=== PATIENT | male | born 1980 ===

== ENCOUNTER 2017-02-24 16:33 | Inpatient (IN) | payer MEDICAID, OTHER ==
--- NOTE | 2017-02-24 16:51 | C.PDOC ---
History Of Present Illness 36 y/o male presents to ED requesting detox from heroin and alcohol. Last use of alcohol and heroin was yesterday, and patient has been pre-screened. Patient denies any physical complaints at this time. Time Seen by Provider: 02/24/17 16:35 Chief Complaint (Nursing): Substance Abuse History Per: Patient History/Exam Limitations: no limitations Onset/Duration Of Symptoms: Gradual Current Symptoms Are (Timing): Still Present Modifying Factor(s): Marijuana, Narcotics Severity: Moderate Associated Symptoms: denies: Suicidal Thoughts Past Medical History Reviewed: Historical Data, Nursing Documentation, Vital Signs Vital Signs: Last Vital Signs Temp 97.6 F 02/28/17 06:21 Pulse 73 02/28/17 06:21 Resp 18 02/28/17 06:21 BP 119/78 02/28/17 06:21 Pulse Ox 99 02/28/17 06:21 - Medical History PMH: Back Problems, HTN, Seizures Surgical History: Appendectomy Family History: States: No Known Family Hx - Social History Hx Alcohol Use: Yes Hx Substance Use: Yes - Immunization History Hx Tetanus Toxoid Vaccination: Yes Hx Influenza Vaccination: No Review Of Systems Except As Marked, All Systems Reviewed And Found Negative. Constitutional: Negative for: Fever, Chills Cardiovascular: Negative for: Chest Pain, Palpitations Respiratory: Negative for: Cough, Shortness of Breath Gastrointestinal: Negative for: Nausea, Vomiting, Abdominal Pain Musculoskeletal: Negative for: Neck Pain, Back Pain Skin: Negative for: Rash, Bruising Neurological: Negative for: Headache, Dizziness Psych: Negative for: Suicidal ideation Physical Exam - Physical Exam Appears: Well, Non-toxic, No Acute Distress Skin: Normal Color, Warm, Dry Eye(s): bilateral: Normal Inspection, EOMI Oral Mucosa: Moist Neck: Supple Cardiovascular: Rhythm Regular (mildly tachycardic), No Murmur Respiratory: Normal Breath Sounds, No Rales, No Rhonchi, No Wheezing Gastrointestinal/Abdominal: Normal Exam, Bowel Sounds, Soft, No Tenderness Extremity: Normal ROM Neurological/Psych: Oriented x3, Other (mild tremors noted) ED Course And Treatment - Laboratory Results Result Diagrams: 02/28/17 07:25 02/28/17 07:25 O2 Sat by Pulse Oximetry: 98 (on RA) Pulse Ox Interpretation: Normal Progress Note: Blood work, UA, UDS ordered and reviewed. Patient given PO Librium. 19:00- Patient medically cleared. Accepted for detox admission by Dr. Rosas. Reevaluation Time: 18:45 Reassessment Condition: Improved (Patient resting comfortably, no current tremors/tachycardia.) Disposition - Disposition Disposition: HOSPITALIZED Disposition Time: 19:03 Condition: STABLE - Clinical Impression Clinical Impression: Opiate dependence, Alcohol dependence - Scribe Statement The provider has reviewed the documentation as recorded by the Scribe Stephanie Santiago All medical record entries made by the Scribe were at my direction and personally dictated by me. I have reviewed the chart and agree that the record accurately reflects my personal performance of the history, physical exam, medical decision making, and the department course for this patient. I have also personally directed, reviewed, and agree with the discharge instructions and disposition. Decision To Admit - Pt Status Changed To: Hospital Disposition Of: Inpatient - Admit Certification Admit to Inpatient:: After my assessment, the patient will require hospitalization for at least two midnights. This is because of the severity of symptoms shown, intensity of services needed, and/or the medical risk in this patient being treated as an outpatient. - InPatient: Physician Admission Certification: I certify that this patient requires 2 or more midnights of care for the following reason:: see notes - . Bed Request Type: Detox Admitting Physician: Jeb Rosas Patient Diagnosis: Alcohol dependence, Opiate dependence
[2017-02-24 17:49] LABS: CHLORIDE 103 mmol/L (98-107); SODIUM 140 mmol/L (132-148)
[2017-02-24 17:50] LABS: POTASSIUM 4.2 mmol/L (3.6-5.2)
[2017-02-24 17:52] LABS: ALB/GLOB RATIO 1.4 (1.0-2.1); ALKALINE PHOSPHATASE 77 U/L (38-126); ALT/SGPT 34 U/L (21-72); AST/SGOT 35 U/L (17-59); BILIRUBIN,TOTAL 1.3 mg/dL (0.2-1.3); BLOOD UREA NITROGEN 18 mg/dL (9-20); CALCIUM 9.4 mg/dl (8.6-10.4); CARBON DIOXIDE 25 mmol/L (22-30); GFR AFRICAN-AMERICAN > 60; GLUCOSE,RANDOM 90 mg/dL (75-110); TOTAL PROTEIN 7.7 g/dL (6.3-8.3)
[2017-02-24 17:53] LABS: ALCOHOL SERUM < 10 mg/dl (0-10); BASO # 0.1 K/uL (0.0-0.2); BASO % 0.7 % (0.0-2.0); EOS # 0.2 K/uL (0.0-0.7); EOS % 1.6 % (0.0-4.0); HEMATOCRIT 42.9 % (35.0-51.0); LYMPH # 2.9 K/uL (1.0-4.3); LYMPH % 27.4 % (20.0-40.0); MEAN CELL VOLUME 91.2 fL (80.0-94.0); MEAN CORPUSCULAR HEMOGLOBIN 31.4 pg (27.0-31.0); MEAN CORPUSCULAR HGB CONC 34.4 g/dL (33.0-37.0); MEAN PLATELET VOLUME 7.4 fL (7.2-11.7); MONO # 0.9 K/uL (0.0-0.8); MONO % 8.5 % (0.0-10.0); RED CELL DISTRIBUTION WIDTH 13.4 % (11.5-14.5); WHITE BLOOD COUNT 10.5 K/uL (4.8-10.8)
[2017-02-24 18:12] LABS: RBC URINE 2 /hpf (0-3); URINE BACTERIA RARE (<OCC); URINE BILIRUBIN NEGATIVE (NEGATIVE); URINE BLOOD NEGATIVE (NEGATIVE); URINE GLUCOSE (UA) NORMAL (Normal); URINE HYALINE CAST 0-2 /lpf (0-2); URINE KETONE TRACE mg/dL (NEGATIVE); URINE LEUKOCYTE ESTERASE NEG Leu/uL (Negative); URINE PROTEIN 2+ mg/dL (NEGATIVE); WBC URINE 3 /hpf (0-5)
[2017-02-24 18:27] LABS: URINE COLOR YELLOW (YELLOW)
--- NOTE | 2017-02-24 19:35 | PCM.BM ---
<Farida Cox - Last Filed: 02/24/17 19:32> Treatment Plan Problems - Problems identified on initial assessmt potential for opiate withdrawal Date Initiated: 02/24/17 Time Initiated: 19:33 Assessment reference: NA Status: Active potential for alcohol withdrawal Date Initiated: 02/24/17 Time Initiated: 19:34 Assessment reference: NA Status: Active anxiety Date Initiated: 02/24/17 Time Initiated: 19:36 Assessment reference: NA Status: Active Treatment assets and liabiliti Patient Assests: cooperative, insightful, motivated, ADL independent, negotiates basic needs, cognitively intact Patient Liabilities: substance abuse, medical problems - Milieu Protocol Maintain good personal hygiene: daily Encourage regular showers, daily Remind patient to perform daily oral care, daily Assist patient to perform ADL's Conduct patient checks and document Observation sheet: Q15 minutes Maintain personal safety: every shift Educate patient to report safety concerns to staff, every shift Monitor environment for contraband/sharps Medication safety: Monitor for expected outcome, potential side effects: every shift, Assess barriers to learning: every shift, Assess readiness for medication education: every shift <Ronan Clark - Last Filed: 02/27/17 00:44> - Diagnosis (1) Alcohol use disorder, severe, dependence Status: Acute Interventions: 02/27/17 00:45 * Assess 7x/week regarding severity of withdrawal * Educate regarding risks, benefits, side effects and alternatives of medications * Use Motivational Interviewing for abstinence * Use CBT for relapse prevention * Medication management for withdrawal symptoms * Encourage medication assisted treatment * (2) Opioid use disorder, severe, dependence Status: Acute Interventions: 02/27/17 00:45 * Assess 7x/week regarding severity of withdrawal * Educate regarding risks, benefits, side effects and alternatives of medications * Use Motivational Interviewing for abstinence * Use CBT for relapse prevention * Medication management for withdrawal symptoms * Encourage medication assisted treatment * <Diane Quezada - Last Filed: 02/27/17 11:03> Family Contact Family involvement: Famantonioy/SO not involved Family contact: Patient declines to allow family contact at present - Goals for Treatment Patient goals for treatment: Complete detox and transition to short or long- term rehab. Discharge/Continuing Care - Education Needs Education Needs: Patient Medication, Patient Diagnosis/Disease Process, Patient Coping Skills, Patient Anger Management skills, Patient Placement options, Patient Community resources - Discharge Discharge Criteria: No longer exhibiting s/s of withdrawal, Reduction of target symptoms Discharge to:: Substance Abuse Rehab - Treatment Team Participation Patient/Family/SO Statement: 02/27/17 11:02 "I'm open to either short term or penitentiary rehab...I don't care. Wherever I get in, I'll go". Discussed with Family/SO: No Was Patient/Family/SO present at Treatment Team Meeting: Yes
[2017-02-24] MEDS ORDERED: Aluminum Hydroxide/Magnesium Hydroxide Susp (30 mL) PO PRN (21:26)
[2017-02-25 13:41] VITALS: RESP 18
--- NOTE | 2017-02-25 14:17 | PCM.PSYCH ---
Initial Psychiatric Evaluation - Initial Psychiatric Evaluation Type of Admission: Voluntary Legal Status: Capacity Chief Complaint (in patient's own words): I overdosed on heroin. History of Present Illness and Precipitating Events: Patient is a 36 years old, , currently unemployed, male with history of ADHD during his childhood, was admitted for the treatment of withdrawing from heroine, anxiolytics, Percocet, cannabis and alcohol. According to patient, he was using drugs with his friends and he became unconscious but according to the record patient was found unconscious in the bathroom of his home and he was taken to [facility] where he was treated with Narcan. Subsequently patient was transferred to [facility] for treatment. Patient denied that this was a suicidal attempt. Reported he started using heroin 3-1/2 years ago after the of his mother. Increased gradually up to 1 bundle daily. He went to [facility] for detox about 6 months ago, was abstinent for about 6 months and relapsed on heroin about 3 weeks ago after losing his job. Lost discharge due to alcohol use and other drugs. Currently he was using 3-4 bags daily. History of one previous detox and one rehabilitation. Also using Percocet which she started 3-1/2 years ago. Was taking 5-6 tablets of Percocet daily until his last detox. For last 3 weeks he is taking 2-3 tablets of Percocet daily. Anxiolytics: Started taking Xanax 3-1/2 years ago, was taking 4-5, 2 mg takes daily until his last detox 6 months ago. For last 3 weeks, taking 2 sticks daily. Cannabis: Started at the age of 13 years, 1 g daily. Last use reported 2 days ago. Alcohol: Started 3-1/2 years ago. He was drinking 1-3 pints of vodka daily. Last drink 2 days ago. There is no longest period of abstinence. Smokes one pack of cigarettes daily and is requesting for nicotine patch. Patient has history of right hand and penile surgery. He has court case pending for hit and run/DUI. Reported as a child he has history of behavioral problems, was going to [facility] and was taking Ritalin until 9 years of age. Patient reported no feeling depression with decreased sleep, increased energy, decreased appetite and lost about 10 pounds in about one month. Patient reported he had suicidal ideations after he lost his job and current overdose attempt looks like suicidal attempt but patient denied. Denied any homicidal ideations. Also reported having irritability, anger, aggression, mood swings, racing thoughts and spending spree, mostly during intoxication. Current Medications: Active Medications Generic Name Dose Route Start Last Admin Trade Name Freq PRN Reason Stop Dose Admin Acetaminophen 650 mg 02/24/17 21:28 02/25/17 11:04 Tylenol 325mg Tab PO 650 mg Q4 PRN Administration Pain, Mild (1-3) Al Hydrox/Mg Hydrox/Simethicone 30 ml 02/24/17 21:26 Maalox 30 Ml PO TID PRN Indigestion / Heartburn Chlordiazepoxide 25 mg 02/24/17 21:36 Librium PO Q4 PRN alcohol withdrawal Clonidine HCl 0.1 mg 02/24/17 21:31 Catapres PO Q8 PRN Opiate reversal Divalproex Sodium 500 mg 02/25/17 18:[address] PO BID MARIVEL Folic Acid 1 mg 02/25/17 14:00 Folic Acid PO DAILY MARIVEL Hydroxyzine HCl 25 mg 02/24/17 21:34 Atarax PO Q8 PRN Anxiety Loperamide HCl 4 mg 02/24/17 21:29 Imodium PO Q8 PRN Diarrhea Multivitamins 1 tab 02/25/17 14:00 Hexavitamin PO DAILY MARIVEL Ondansetron HCl 4 mg 02/24/17 21:27 02/25/17 11:04 Zofran Tab PO 4 mg Q6 PRN Administration Nausea/Vomiting Phenytoin Sodium 100 mg 02/25/17 14:00 Dilantin PO TID [facility] Thiamine HCl 100 mg 02/25/17 14:00 Vitamin B1 Tab PO DAILY MARIVEL Trazodone HCl 50 mg 02/24/17 21:33 02/24/17 21:53 Desyrel PO 50 mg HS PRN Administration Insomnia Past Psychiatric History - Past Psychiatric History Previous Treatment History: Inpatient At [facility]: [facility] Nature of Treatment: Inpatient detox History of Abuse: None reported History of ETOH/Drug Use: CC and HPI History of Family Illness: None reported Pertinent Medical Hx (Current Medical&Sleep Prob, Allergies): Allergies Allergy/AdvReac Type Severity Reaction Status Date / Time No Known Allergies Allergy Verified 02/24/17 16:36 No Known Home Med 02/24/17 Epilepsy Review of Systems - Psychiatric Psychiatric: Depression, Irritability, Mood Swings Mental Status Examination - Personal Presentation Personal Presentation: Looks stated age - Affect Affect: Other (Inappropriate/neutral) - Motor Activity Motor Activity: Calm - Reliability in Providing Information Reliability in Providing Information: Fair - Speech Speech: Organized - Mood Mood: Depressed - Formal Thought Process Formal Thought Process: No Impairment - Hallucinations/Delusions Hallucinations: Other (None reported) Delusions: Other - Obsessions/Compulsions Obsessions: None Compulsions: None - Cognitive Functions Orientation: Person, Place, Situation, Time Sensorium: Alert Attention/Concentration: Attentive Abstract Thinking: [place] Estimate of Intelligence: Average Judgement: Intact, as evidence by: Insight regarding need for hospitalization Memory: Recent intact, as evidence by: 3/3 object recall, Remote intact, as evidenced by: Ability to recall historical events - Risk Risk: Withdrawal, Diminished functioning - Strength & Assets Inventory Strength & Assets Inventory: Family support, Cooperative - Limitations Limitations: Other DSM 5 DX - DSM 5 DSM 5 Diagnosis: Opiate use disorder moderate Anxiolytics use disorder Cannabis use disorder severe Alcohol use disorder severe Provisional: Bipolar 1 disorder Provisional: Antisocial personality disorder - Recommended/Plan of Treatment Treatment Recommendations and Plan of Treatment: Patient education Supportive therapy Will start when necessary medication for opiate, anxiolytics and alcohol withdrawal as patient has very mild symptoms of withdrawing from these substances. Other when necessary medications Multivitamin Folic acid Timing Nicotine patch Depakote 500 mg twice a day Projected ELOS: 4-5 days - Smoking Cessation Smoking Cessation Initiated: Yes
[2017-02-25] MEDS: Multiple Vitamins Tab PO SCH (14:26)
[2017-02-25] MEDS: Divalproex 500 mg DR Tab PO SCH (17:42)
[2017-02-26] MEDS: Multiple Vitamins Tab PO SCH (09:45)
[2017-02-26] MEDS: Divalproex 500 mg DR Tab PO SCH ×2 (09:45→17:20)
--- NOTE | 2017-02-26 14:22 | PCM.PYCHPN ---
Psychiatric Progress Note - Psychiatric Progress Note Patient seen today, length of contact: 16 min Patient Chief Complaint: Having back pain, tremors, diaphoretic, anxiety Problems Identified/Issues Discussed: The pt is seen, chart reviewed, case discussed with staff. The pt is compliant with Lirbium and Vitamins and reports no side effects. Pt is having back pain, tremors, diaphoretic, trouble sleeping overnight, anxious Denies nausea, vominting diarrhea, constipation After care discussed, support and psychoeducation given. Medication Change: Yes (detox changes daily) Medical Record Reviewed: Yes Mental Status Examination - Cognitive Function Orientation: Person, Place, Situation, Time Memory: Intact Attention: WNL Concentration: WNL Association: WNL Fund of Knowledge: WNL - Mood Mood: Anxious - Affect Affect: Other (Inappropriate/neutral) - Speech Speech: Appropriate - Formal Thought Process Formal Thought Process: No Impairment - Suicidal Ideation Suicidal Ideation: No - Homicidal Ideation Homicidal Ideation: No Goal/Treatment Plan - Goal/Treatment Plan Need for Continued Stay: Discharge may exacerbated symptoms, Severe functional impairment Progress Toward Problem(s) and Goals/Treatment Plan: Continue medications with detox Support and psychoeducation daily Attend groups and activities daily After care planning by counselors - Smoking Cessation Smoking Cessation Initiated: No
[2017-02-27] MEDS: Multiple Vitamins Tab PO SCH (10:17)
[2017-02-27] MEDS: Divalproex 500 mg DR Tab PO SCH ×2 (10:17→18:15)
[2017-02-28 06:22] VITALS: BP 119/78; PULSE 73; TEMP 97.6
[2017-02-28 07:42] LABS: BASO # 0.1 K/uL (0.0-0.2); BASO % 1.3 % (0.0-2.0); EOS # 0.2 K/uL (0.0-0.7); EOS % 4.1 % (0.0-4.0); HEMATOCRIT 41.7 % (35.0-51.0); LYMPH % 54.5 % (20.0-40.0); MEAN CELL VOLUME 91.4 fL (80.0-94.0); MEAN CORPUSCULAR HEMOGLOBIN 31.4 pg (27.0-31.0); MEAN CORPUSCULAR HGB CONC 34.4 g/dL (33.0-37.0); MEAN PLATELET VOLUME 7.4 fL (7.2-11.7); MONO # 0.5 K/uL (0.0-0.8); MONO % 9.5 % (0.0-10.0); RED CELL DISTRIBUTION WIDTH 13.8 % (11.5-14.5); WHITE BLOOD COUNT 5.6 K/uL (4.8-10.8)
[2017-02-28 08:10] LABS: CHLORIDE 100 mmol/L (98-107); SODIUM 140 mmol/L (132-148)
[2017-02-28 08:11] LABS: POTASSIUM 3.7 mmol/L (3.6-5.2)
[2017-02-28 08:13] LABS: ALB/GLOB RATIO 1.4 (1.0-2.1); ALKALINE PHOSPHATASE 58 U/L (38-126); ALT/SGPT 40 U/L (21-72); AST/SGOT 34 U/L (17-59); BILIRUBIN,TOTAL 0.6 mg/dL (0.2-1.3); BLOOD UREA NITROGEN 16 mg/dL (9-20); CARBON DIOXIDE 24 mmol/L (22-30); GFR AFRICAN-AMERICAN > 60; GLUCOSE,RANDOM 98 mg/dL (75-110); TOTAL PROTEIN 6.6 g/dL (6.3-8.3)
[2017-02-28 08:14] LABS: CALCIUM 9.1 mg/dl (8.6-10.4)
[2017-02-28 08:16] LABS: VALPROIC ACID 61.4 ug/mL (50.0-100.0)
--- NOTE | 2017-02-28 08:46 | PCM.PYCHDC ---
Mental Status Examination - Mental Status Examination Orientation: Person, Place, Situation, Time Memory: Intact Mood: Anxious Affect: Constricted Speech: Appropriate Attention: WNL Concentration: WNL Association: WNL Fund of Knowledge: WNL Formal Thought Process: No Impairment Suicidal Ideation: No Current Homicidal Ideation?: No Discharge Summary - Discharge Note Reason for Hospitalization: Alcohol detox Psychiatric History (includes Medical, Family, Personal Hx): Inpatient detox Laboratory Data: Abnormal Lab Results 02/28/17 02/28/17 02/28/17 07:25 07:25 07:25 WBC 5.6 RBC 4.57 Hgb 14.4 Hct 41.7 MCV 91.4 MCH 31.4 H MCHC 34.4 RDW 13.8 Plt Count 196 MPV 7.4 Neut % (Auto) 30.6 L Lymph % (Auto) 54.5 H [place] % (Auto) 9.5 Eos % (Auto) 4.1 H Baso % (Auto) 1.3 Neut # 1.7 L Lymph # 3.0 [place] # 0.5 Eos # 0.2 Baso # 0.1 Sodium 140 Potassium 3.7 Chloride 100 Carbon Dioxide 24 Anion Gap 20 BUN 16 Creatinine 0.9 Est GFR ( Amer) > 60 Est GFR (Non-Af Amer) > 60 Random Glucose 98 Calcium 9.1 Total Bilirubin 0.6 AST 34 ALT 40 Alkaline Phosphatase 58 Total Protein 6.6 Albumin 3.8 Globulin 2.8 Albumin/Globulin Ratio 1.4 Phenytoin < 3.0 L Valproic Acid 61.4 Consultations:: List each consultation separately and include: 1. Reason for request. 2. Findings. 3. Follow-up Summary of Hospital Course include:: 1. Description of specific treatment plan utilized for patients during their course of treatmen. 2. Summarize the time- course for resolution of acute symptoms and/or regressed behaviors. 3. Describe issues identified and worked on during hospitalization. 4. Describe medication utilized. 5. Describe medical problems identified and treated. 6. Reassessment of suicide risk Summary of Hospital Course: The pt was admitted and started on treatment with psychotherapy, support, psychoeducation and medications. [place] and CBT used. The pt attended groups and activities, as well as milieu therapy. All the risks and benefits of medications are discussed and the patient understood and agreed. he didnot need opioid detox and he was surprised too The pt improved with the treatments provided. After care discussed with the patient. He is accepted by [facility] rehab and left early today. - Final Diagnosis (DSM 5) Condition upon Discharge: GOOD DSM 5: Alcohol withdrawal Opioid use disorder moderate Anxiolytics use disorder, moderate Cannabis use disorder severe Alcohol use disorder severe Provisional: Bipolar 1 disorder Disposition: REHAB FACILITY/REHAB UNIT Follow-up Treatment Plan: Continue below medications after discharge. Follow after care plan as discussed. Use relapse prevention skills Return to ER or call 911 if suicidal, homicidal or symptoms relapse. Stay away from stress, alcohol and drugs. See primary doctor once a year. Prescriptions/Medication Reconciliation: Divalproex [Depakote DR] 500 mg PO BID #60 tcp Mirtazapine [Remeron] 15 mg PO HS #30 tab Phenytoin, Extended [Dilantin] 100 mg PO TID #90 cer QUEtiapine [Seroquel] 100 mg PO HS #30 tab traZODone [Desyrel] 50 mg PO HS PRN #30 tab PRN Reason: Insomnia
--- NOTE | 2017-02-28 12:51 | PCM.PYCHPN ---
Psychiatric Progress Note - Psychiatric Progress Note Patient seen today, length of contact: 16 min Patient Chief Complaint: "better today" Problems Identified/Issues Discussed: The pt is seen, chart reviewed, case discussed with staff. Support given, CBT and MA used briefly No new symptoms reported, improving slowly and needs more time No SEs from medications, risks discussed. After care discussed Medication Change: Yes (detox changes daily) Medical Record Reviewed: Yes Mental Status Examination - Cognitive Function Orientation: Person, Place, Situation, Time Memory: Intact Attention: WNL Concentration: WNL Association: WNL Fund of Knowledge: WNL - Mood Mood: Anxious - Affect Affect: Constricted - Speech Speech: Appropriate - Formal Thought Process Formal Thought Process: No Impairment - Suicidal Ideation Suicidal Ideation: No - Homicidal Ideation Homicidal Ideation: No Goal/Treatment Plan - Goal/Treatment Plan Need for Continued Stay: Discharge may exacerbated symptoms, Severe functional impairment Progress Toward Problem(s) and Goals/Treatment Plan: Continue medications Support and psychoeducation daily Attend groups and activities daily After care planning by counselors, ie rehab Citlalli lang Estimated Date of D/C: 03/01/17
[2017-02-28 14:49] VITALS: O2SAT 98
== END 2017-02-28 08:10 | DRG 745 ==
LOC: C.ER 16:33 → C.7D 19:03
PROC: HZ2ZZZZ Detoxification Services for Substance Abuse Treatment (ICD-10-PCS; principal; 2017-02-24)
PROC: HZ52ZZZ Individual Psychotherapy for Substance Abuse Treatment, Cognitive-Behavioral (ICD-10-PCS; 2017-02-24)
PROC: HZ59ZZZ Individual Psychotherapy for Substance Abuse Treatment, Supportive (ICD-10-PCS; 2017-02-24)
PROC: HZ56ZZZ Individual Psychotherapy for Substance Abuse Treatment, Psychoeducation (ICD-10-PCS; 2017-02-24)
DX: F10.239 Alcohol dependence with withdrawal, unspecified (principal); F11.20 Opioid dependence, uncomplicated; R45.851 Suicidal ideations; I10 Essential (primary) hypertension; F12.90 Cannabis use, unspecified, uncomplicated; F17.210 Nicotine dependence, cigarettes, uncomplicated; F31.9 Bipolar disorder, unspecified; F41.9 Anxiety disorder, unspecified; F60.2 Antisocial personality disorder; F90.9 Attention-deficit hyperactivity disorder, unspecified type